=== PATIENT | male | born 1960 | race Caucasian/White ===

== ENCOUNTER 2019-04-09 21:17 | Emergency (ER) | payer OTHER ==
[~2019-04-09] VITALS: Ht 182.9 cm; Wt 99.8 kg
[~2019-04-09 21:17] MED LIST: ALLO100 PO; ALLO300 PO; ATOR80 PO; CEPH500 PO; HYDACE5 PO; HYDR1TAB94 PO; INDO50 PO; INDO50S PO; INDO75CR PO; LISI20 PO; METF500 PO; OXYC5 PO; PRED20 PO; RXOXYACE PO; TAMS.4ER; TRIA50 PO; TRIHYD253B PO; XARELTO20 MG PO
[2019-04-09] MEDS ORDERED: CEPH500 PO (22:54)
== END 2019-04-09 23:00 | disposition home or self-care (01) ==
LOC: ER 21:17
DX: S01.111A Laceration without foreign body of right eyelid and periocular area, initial encounter (principal); I10 Essential (primary) hypertension; M10.9 Gout, unspecified; M19.90 Unspecified osteoarthritis, unspecified site; F17.210 Nicotine dependence, cigarettes, uncomplicated; Z79.84 Long term (current) use of oral hypoglycemic drugs; Z79.899 Other long term (current) drug therapy; W22.8XXA Striking against or struck by other objects, initial encounter
CPT/HCPCS: 12052; 99282-25

== ENCOUNTER 2019-04-14 14:54 | Emergency (ER) | payer OTHER ==
[~2019-04-14] VITALS: Ht 182.9 cm; Wt 99.8 kg
== END 2019-04-14 15:43 | disposition home or self-care (01) ==
LOC: ER 14:54
DX: S01.111D Laceration without foreign body of right eyelid and periocular area, subsequent encounter (principal); Z79.899 Other long term (current) drug therapy; Z79.84 Long term (current) use of oral hypoglycemic drugs; I10 Essential (primary) hypertension; F17.210 Nicotine dependence, cigarettes, uncomplicated

== ENCOUNTER 2019-04-17 06:27 | Day surgery (SDC) | payer OTHER ==
[~2019-04-17] VITALS: Ht 182.9 cm; Wt 97.7 kg
--- NOTE | 2019-04-17 08:23 | NUR ---
04/17/19 0823 Gloria Paz SIMETHICONE USED DURING PROCEDURE.
== END 2019-04-17 08:55 | disposition home or self-care (01) ==
LOC: ORSCSDS 06:27
PROVIDERS: Internal Medicine Gastroenterology
PROC: 0DBN8ZX Excision of Sigmoid Colon, Via Natural or Artificial Opening Endoscopic, Diagnostic (ICD-10-PCS; principal; 2019-04-17 08:00)
DX: K62.5 Hemorrhage of anus and rectum (principal); K63.5 Polyp of colon; K64.8 Other hemorrhoids; I10 Essential (primary) hypertension; E11.9 Type 2 diabetes mellitus without complications; F17.210 Nicotine dependence, cigarettes, uncomplicated; Z79.899 Other long term (current) drug therapy
CPT/HCPCS: 82947; 88305; J2405; J2704; J7120

== ENCOUNTER 2021-11-16 23:07 | Observation (INO) | payer OTHER ==
[~2021-11-16] VITALS: Ht 185.4 cm; Wt 99.7 kg
[2021-11-16 23:38] LABS: BASOPHILS ABSOLUTE AUTO 0.04 K/mm3 (0.00-0.23); BASOPHILS PERCENT AUTO 0 % (0-2); EOSINOPHILS ABSOLUTE AUTO 0.02 K/mm3 (0.00-0.68); EOSINOPHILS PERCENT AUTO 0 % (0-6); Hematocrit 43.5 % (37.0-53.0); Hemoglobin 15.3 g/dL (13.5-17.5); IMMATURE GRAN ABSOLUTE AUTO 0.05 K/mm3 (0.00-0.10); IMMATURE GRAN PERCENT AUTO 0 % (0-1); LYMPHOCYTES ABSOLUTE AUTO 1.26 K/mm3 (0.84-5.20); LYMPHOCYTES PERCENT AUTO 8 % (21-46); MONOCYTES PERCENT AUTO 9 % (4-13); Mean Corpuscular HGB 31.5 pg (26.0-34.0); Mean Corpuscular HGB Conc 35.2 g/dL (31.5-36.5); Mean Corpuscular Volume 90 fL (80-100); NEUTROPHILS ABSOLUTE AUTO 13.14 K/mm3 (1.96-9.15); NEUTROPHILS PERCENT AUTO 83 % (41-73); Platelet Count 224 K/mm3 (150-400); RDW Coefficient Variation 12.9 % (11.7-14.2); Red Blood Cell Count 4.85 M/mm3 (4.30-5.90); White Blood Cell Count 15.91 K/mm3 (4.00-11.30)
[2021-11-17 00:32] LABS: Alanine Aminotransfer (ALT/SGP 29 U/L (12-78); Albumin, Blood 3.4 g/dL (3.4-5.0); Albumin/Globulin Ratio 0.9 (0.8-1.8); Alk Phos 89 U/L (50-136); Anion Gap 7 mmol/L (6-16); Aspartate Aminotrans (AST/SGOT 18 U/L (12-37); Bilirubin, Total 1.3 mg/dL (0.1-1.0); Blood Urea Nitrogen 23 mg/dL (8-24); CO2, Blood 25 mmol/L (21-32); Calcium, Blood 9.1 mg/dL (8.5-10.1); Chloride, Blood 100 mmol/L (98-108); Creatinine, Blood 0.92 mg/dL (0.60-1.20); Globulin, Blood 3.9 g/dL (2.2-4.0); Glomerular Filtration Rate >60 (60-); Glucose, Blood 122 mg/dL (70-99); Potassium, Blood 3.8 mmol/L (3.5-5.5); Sodium, Blood 132 mmol/L (136-145); Total Protein, Blood 7.3 g/dL (6.4-8.2)
[2021-11-17 01:17] LABS: Source, Urine Voided
[2021-11-17 01:35] LABS: Appearance, Urine Clear (Clear); Bilirubin, Urine Neg (Neg); Blood, Urine Neg (Neg); Color, Urine Yellow (P-Yellow); Glucose Qualitative, Urine Neg (Neg); Ketones, Urine 1+ (Neg); Leukocyte Esterase, Urine Neg (Neg); Nitrite, Urine Neg (Neg); Protein, Urine Neg (Neg); Urobilinogen, Urine NORM (Normal)
[2021-11-17 03:18] LABS: Influenza A, PCR NEGATIVE (NEGATIVE); Influenza B, PCR NEGATIVE (NEGATIVE); Resp Syncytial Virus, PCR NEGATIVE (NEGATIVE)
--- NOTE | 2021-11-17 04:38 | NUR ---
SHIFT SUMMARY ARRIVED FROM ED APPROX 0340. A/OX4, SBA WITH TRANSFERS. C/O 12/30 RLQ PAIN AFTER RECEIVING PAIN MEDS PER EMAR. NPO, IV FLUIDS RUNNING. VSS, NO ACUTE CHANGES AT THIS TIME. BED IN LOWEST POSITION WITH CALL LIGHT IN REACH. WILL CONTINUE TO MONITOR AND REPORT TO ONCOMING RN.
[2021-11-17 05:12] LABS: SARS-Cov-2 (COVID-19) PCR, MMC POSITIVE (NEGATIVE)
--- NOTE | 2021-11-17 11:53 | NUR ---
PT PREOPED IN ROOM 210. History, Chart, Medications and Allergies reviewed before start of procedure. Lungs clear T/O to Auscultation. Patient confirms NPO status and agrees with scheduled surgery. Pre-Op teaching done. Pt verbalizes understanding.
--- NOTE | 2021-11-17 15:15 | NUR ---
PATIENT CAME BACK TODAY 11/17/21 AT 1500. POD 0 LAP APPY PATIENT IS ALERT AND ORIENTED X4. VS ARE WNL AND IS ON RA. PATIENT DENIES PAIN AT THIS TIME. HIS 2 ABD LAP SITES HAVE STERI STRIPS AND ARE C/D/I. PATIENT IS TOLERATING SMALL AMOUNTS OF PO INTAKE. HE WAS ABLE TO WALK FROM OR BED TO HIS ROOM BED WITH SBA. PATIENT HAS ALREADY BEEN BURPING SOON HE CAME BACK. CALL LIGHT WITHIN REACH.
--- NOTE | 2021-11-17 16:21 | NUR ---
SHIFT SUMMARY: POD 0 LAP APPY NO SIGNIFICANT CHANGES SINCE COMING BACK FROM PACU. PATIENT IS TOLERTING PO INTAKE. PATIENT IS PASSING FLATUS AND BURPING A MODERATE AMOUNT. HE IS INDEP. IN THE ROOM. ABD HAS 2 LAP SITES WITH STERI STRIPS THAT ARE C/D/I. BOWEL SOUNDS ARE ACTIVE. PATIENT DENIES PAIN AT THIS TIME. CALLS APPROPRIATELY. CALL LIGHT WITHIN REACH. THE PLAN IS TO RECIEVE IV ABX AND HAVE PAIN MANAGED.
--- NOTE | 2021-11-18 05:15 | NUR ---
ALERT AND ORIENTED X'S 4. MEDICATED FOR PAIN MANAGEMENT DUE TO C/O RIGHT SHOULDER PAIN AND RLQ PAIN, EFFECTIVE RELIEF. DENIES CHEST PAIN OR SOB. LAP SITES TO ABDOMEN INTACT, STERI STRIPS IN PLACE. SLEPT WELL THROUGH NIGHT. TOLERATING PO FLUIDS. AMBULATING IN ROOM. SAFETY MEASURES MAINTAINED WITH CALL JUDGE IN REACH.
[2021-11-18] MEDS ORDERED: Norco 5-325 Ta1 EACH PO (13:34)
[2021-11-18] MEDS ORDERED: AMOCLA875 PO (13:35)
--- NOTE | 2021-11-18 15:19 | NUR ---
DISCHARGING REVIEWED DC INSTRUCTIONS W/PT; VERBALIZED UNDERSTANDING. DC'D IV, CATHETER INTACT. PT AWAITING RIDE.
--- NOTE | 2021-11-18 15:44 | NUR ---
discharged PT LEFT UNIT IN WC W/POSSESSIONS AND DC PAPERWORK TO RIDE WAITING OUTSIDE.
== END 2021-11-18 15:38 | disposition home or self-care (01) ==
LOC: ER 23:07 → SURS 23:08 → ER 11-17 02:50 → SURS 11-17 02:50
PROVIDERS: Emergency Medicine; Surgery; ADMIT Surgery
PROC: 0DTJ4ZZ Resection of Appendix, Percutaneous Endoscopic Approach (ICD-10-PCS; principal; 2021-11-17 11:45)
DX: K35.891 Other acute appendicitis without perforation, with gangrene (principal); U07.1 COVID-19; I10 Essential (primary) hypertension; M10.9 Gout, unspecified; M19.90 Unspecified osteoarthritis, unspecified site; F17.210 Nicotine dependence, cigarettes, uncomplicated; E11.9 Type 2 diabetes mellitus without complications; Z23 Encounter for immunization
CPT/HCPCS: 0241U; 74177; 80053; 81003; 82947; 83605; 83690; 85025; 88304; 90686; 93005; 93010; 96365; 96366; 96367; 96375; 99285-25; A9270; G0378; J0295; J1100; J1170; J1885; J2250; J2405; J2543; J2704; J3010; J7030; J7050; J7120; Q9967

== ENCOUNTER 2023-02-25 12:56 | Observation (INO) | payer OTHER ==
[~2023-02-25] VITALS: Ht 182.9 cm; Wt 109.0 kg
[~2023-02-25 12:56] MED LIST changes: +AMOCLA875 PO; +Norco 5-325 Ta1 EACH PO
[2023-02-25] MEDS ORDERED: TAMS.4ER PO (15:55)
[2023-02-25] MEDS ORDERED: Chantix1 MG PO (15:55)
[2023-02-25 16:58] LABS: BASOPHILS ABSOLUTE AUTO 0.06 K/mm3 (0.00-0.23); BASOPHILS PERCENT AUTO 1 % (0-2); EOSINOPHILS ABSOLUTE AUTO 0.11 K/mm3 (0.00-0.68); EOSINOPHILS PERCENT AUTO 2 % (0-6); Hematocrit 42.5 % (37.0-53.0); Hemoglobin 14.6 g/dL (13.5-17.5); IMMATURE GRAN ABSOLUTE AUTO 0.04 K/mm3 (0.00-0.10); IMMATURE GRAN PERCENT AUTO 1 % (0-1); LYMPHOCYTES ABSOLUTE AUTO 1.92 K/mm3 (0.84-5.20); LYMPHOCYTES PERCENT AUTO 25 % (21-46); MONOCYTES ABSOLUTE AUTO 0.61 K/mm3 (0.16-1.47); MONOCYTES PERCENT AUTO 8 % (4-13); Mean Corpuscular HGB 31.7 pg (26.0-34.0); Mean Corpuscular HGB Conc 34.4 g/dL (31.5-36.5); Mean Corpuscular Volume 92 fL (80-100); Mean Platelet Volume 10.6 fL (9.1-12.4); NEUTROPHILS ABSOLUTE AUTO 4.81 K/mm3 (1.96-9.15); NEUTROPHILS PERCENT AUTO 64 % (41-73); Platelet Count 216 K/mm3 (150-400); RDW Coefficient Variation 12.9 % (11.7-14.2); RDW Standard Deviation 43.1 fL (35.1-46.3); Red Blood Cell Count 4.61 M/mm3 (4.30-5.90); White Blood Cell Count 7.55 K/mm3 (4.00-11.30)
[2023-02-25 17:00] VITALS: BP 144/86
[2023-02-25 17:30] LABS: Albumin, Blood 3.9 g/dL (3.4-5.0); Anion Gap 5 mmol/L (6-16); Blood Urea Nitrogen 21 mg/dL (8-24); Bun/Creatinine Ratio 23.5 (12.0-20.0); CO2, Blood 27 mmol/L (21-32); Calcium, Blood 9.5 mg/dL (8.5-10.1); Chloride, Blood 104 mmol/L (98-108); Creatinine, Blood 0.89 mg/dL (0.60-1.20); Glomerular Filtration Rate 96 (60-); Glucose, Blood 128 mg/dL (70-99); Phosphorus, Blood 2.8 mg/dL (2.5-4.9); Potassium, Blood 3.8 mmol/L (3.5-5.5); Sodium, Blood 136 mmol/L (136-145)
--- NOTE | 2023-02-25 17:54 | NUR ---
SHIFT SUMMARY PT BROUGHT FROM ER VIA MAICOL, HE REPORTS PAIN IS MUCH BETTER AT THIS TIME. HE DENIES FURTHER NEEDS AT THIS TIME. PLAN IS FOR PT/OT TO SEE HIM TOMORROW AND WORK ON MOBILIZATION.
[2023-02-25] MEDS ORDERED: DYAZIDE 37.5-21 EACH PO (18:13)
[2023-02-25 19:28] VITALS: BP 147/93
[2023-02-26] VITALS (7 sets, daily range): BP systolic 126–147; BP diastolic 80–97
--- NOTE | 2023-02-26 03:41 | NUR ---
SHIFT SUMMARY R HIP FX NONSURGICAL PT A&OX4. PT HAS REMAINED CALM AND COOPERATIVE THROUGHOUT SHIFT. PAIN HAS BEEN MANAGED PER EMAR WITH TYLENOL AND ROXICODONE SO FAR THROUGHOUT SHIFT. PT DENIES NUMBNESS OR TINGLING IN ALL EXTREMETIES. PEDAL PULSES ARE STRONG BILATERALLY, CAP REFILL <3 SECONDS, LOWER EXTREMITIES PINK AND WARM TO TOUCH. PT CAN WIGGLE TOES WHEN ASKED. NWB ON R LEG, PT REPOSITIONS INDEPENDENTLY IN BED. USING URINAL INDEPENDENTLY, VOIDING WITHOUT DIFFICULTY. BLOOD PRESSURE SLIGHTLY ELEVATED, VITAL SIGNS ARE OTHERWISE IN NORMAL RANGE. PT STATED "MY BLOOD PRESSURE IS NORMALLY THAT HIGH". PT DENIES CHEST PAIN OR PRESSURE. NO ACUTE CHANGES THROUGHOUT SHIFT, PT DENIES FURTHER NEEDS. CALLS APPROPRIATELY. PT IS RESTING IN BED WITH CALL LIGHT IN REACH.
--- NOTE | 2023-02-26 03:42 | NUR ---
SHIFT SUMMARY: NONSURGICAL RIGHT HIP FX PATIENT IS A&OX4. SLIGHTLY HIGH SBP BUT OTHERWISE VS ARE WNL AND IS ON RA. PATIENT STATED "MY BLOOD PRESSURE IS NORMALLY THAT HIGH". PATIENTS PAIN HAS BEEN MANAGED WITH PO OXY. HE HAS AN ABRASION TO THE RIGHT OUTER FOREARM THAT IS DRY AND OPEN TO AIR. PATIENT DENIES NUMBNESS AND TINGLING TO ALL EXTREMITIES. CAN MOVE ALL FINGERS AND TOES WHEN ASKED. PEDAL PULSES ARE STRONG BILATERALLY AND WARM TO TOUCH. PATIENT IS TOLERATING PO INTAKE AND VOIDING. PATIENT CALLS APPROPRIATELY. HE IS LAYING IN BED WITH CALL LIGHT IN REACH.
[2023-02-26 05:31] LABS: BASOPHILS ABSOLUTE AUTO 0.06 K/mm3 (0.00-0.23); BASOPHILS PERCENT AUTO 1 % (0-2); EOSINOPHILS ABSOLUTE AUTO 0.21 K/mm3 (0.00-0.68); EOSINOPHILS PERCENT AUTO 3 % (0-6); Hematocrit 42.6 % (37.0-53.0); Hemoglobin 14.7 g/dL (13.5-17.5); IMMATURE GRAN ABSOLUTE AUTO 0.03 K/mm3 (0.00-0.10); IMMATURE GRAN PERCENT AUTO 0 % (0-1); LYMPHOCYTES ABSOLUTE AUTO 2.05 K/mm3 (0.84-5.20); LYMPHOCYTES PERCENT AUTO 25 % (21-46); MONOCYTES ABSOLUTE AUTO 0.76 K/mm3 (0.16-1.47); MONOCYTES PERCENT AUTO 9 % (4-13); Mean Corpuscular HGB 31.3 pg (26.0-34.0); Mean Corpuscular HGB Conc 34.5 g/dL (31.5-36.5); Mean Corpuscular Volume 91 fL (80-100); NEUTROPHILS ABSOLUTE AUTO 4.96 K/mm3 (1.96-9.15); NEUTROPHILS PERCENT AUTO 62 % (41-73); Platelet Count 195 K/mm3 (150-400); RDW Coefficient Variation 13.1 % (11.7-14.2); Red Blood Cell Count 4.69 M/mm3 (4.30-5.90); White Blood Cell Count 8.07 K/mm3 (4.00-11.30)
[2023-02-26 05:54] LABS: Albumin, Blood 3.7 g/dL (3.4-5.0); Anion Gap 4 mmol/L (6-16); Blood Urea Nitrogen 21 mg/dL (8-24); Bun/Creatinine Ratio 23.8 (12.0-20.0); CO2, Blood 26 mmol/L (21-32); Calcium, Blood 9.7 mg/dL (8.5-10.1); Chloride, Blood 106 mmol/L (98-108); Creatinine, Blood 0.88 mg/dL (0.60-1.20); Glomerular Filtration Rate 96 (60-); Glucose, Blood 122 mg/dL (70-99); Magnesium, Blood 2.3 mg/dL (1.6-2.4); Phosphorus, Blood 3.7 mg/dL (2.5-4.9); Potassium, Blood 4.2 mmol/L (3.5-5.5); Sodium, Blood 136 mmol/L (136-145)
--- NOTE | 2023-02-26 16:33 | NUR ---
SHIFT SUMMARY NO ACUTE CHANGES THIS SHIFT. PT REMAINS ALERT AND ORIENTED X4. RIGHT HIP PAIN HAS BEEN TOLERABLE AND PT HAS BEEN MEDICATED ACCORING TO EMAR. PT REPORTS SLIGHT NUMBNESS IN HIS RIGHT LEG, SENSATION AND MOVEMENT INTACT, PULSES PALPABLE. PT IS TOLERATING ADA DIET, VOIDS WITH URINAL AND REPORTS PASSING GAS. HE HAS BEEN INSTRUCTED ON THE USE OF HIS CALL LIGHT AND CALLS APPROPRIATELY.
--- NOTE | 2023-02-27 04:44 | NUR ---
SHIFT SUMMARY AOX4. VSS. R NONDISPLACED HIP FX. REPORTS CONSTANT 4-5/10 PAIN IN R HIP, DENIES NEED FOR ANY MEDICATION BESIDES SCHEDULED TYLENOL. DENIES N/V, DYSPNEA. NWB R LEG. ABLE TO WIGGLE R FOOT TOES, STRONG PULSE, CAP REFIL <3 SEC. REPORTS CHRONIC N/T TO R FOOT, HOWEVER STATES HE HAS "NEW" INFREQUENT N/T TO R THIGH SINCE FALL. PLAN TO POSSIBLY DC TODAY. CALL LIGHT IN REACH, WILL MONITOR.
[2023-02-27 05:27] VITALS: BP 147/90
[2023-02-27 07:08] VITALS: BP 146/84
--- NOTE | 2023-02-27 08:44 | NUR ---
MORNING NOTE R HIP FX D/T GROUND LEVEL FALL, NONSURGICAL. PT AOX4. REPORTS PAIN 5/10, MEDICATED PER EMAR. NO REPORTS OF N/V. TOLERATING PO INTAKE. R PPP & BRISK CAP REFILL. BRUISING ASSESSED R HIP/BUTTOCK. AMBULATING W/ ASSIST, FWW & GB. NWB R LEG. WILL CONTINUE TO WORK W/ PT/OT. SEE ASSESSMENT FOR MORE INFO.
[2023-02-27] MEDS ORDERED: METO25ER PO (11:07)
[2023-02-27] MEDS ORDERED: Percocet 5-3251 EACH PO (11:07)
--- NOTE | 2023-02-27 13:30 | NUR ---
DISCHARGE NOTE NONSURGICAL R HIP FX, FOLLOWING GROUND LEVEL FALL. PT AOX4, RECEPTIVE TO EDUCATION & AGREES W/ DC PLAN. PT/OT EVAL COMPLETED, DISCHARGE HOME W/ HH. SBA W/ FWW GB, NWB R LEG. PAIN MANAGED W/ PRESCRIBED MEDICATION. TOLERATING PO INTAKE, NO N/V. VSS. IV RMVD. PT TRANSFERRED TO PERSONAL VEHICLE VIA WHEELCHAIR.
== END 2023-02-27 13:45 | disposition home health service (06) ==
LOC: ER 12:56 → SURS 12:57
PROVIDERS: ADMIT Family Medicine
DX: M97.01XA Periprosthetic fracture around internal prosthetic right hip joint, initial encounter (principal); I10 Essential (primary) hypertension; E11.9 Type 2 diabetes mellitus without complications; N40.0 Benign prostatic hyperplasia without lower urinary tract symptoms; M10.9 Gout, unspecified; F17.210 Nicotine dependence, cigarettes, uncomplicated; Z96.641 Presence of right artificial hip joint; Z79.899 Other long term (current) drug therapy; Z79.84 Long term (current) use of oral hypoglycemic drugs; W18.09XA Striking against other object with subsequent fall, initial encounter
CPT/HCPCS: 36415; 72192; 73502; 80069; 82947; 83735; 85025; 96372; 96374; 96375; 96376; 97110; 97116; 97162; 97166; 97530; 97535; 99284-25; A9270; G0378; J1170; J1650; J2405